=== PATIENT | female | born 1960 | race Caucasian/White ===

== ENCOUNTER 2018-05-14 11:03 | Emergency (ER) | payer OTHER ==
[~2018-05-14] VITALS: Ht 172.7 cm; Wt 72.6 kg
[2018-05-14] MEDS ORDERED: LAMICTAL100 MG PO (11:27)
[2018-05-14] MEDS ORDERED: CELEXA40 MG PO (11:27)
[2018-05-14] MEDS ORDERED: SEROQUEL 50 MG50 MG PO (11:28)
[2018-05-14] MEDS ORDERED: MOBIC15 MG PO (11:28)
[2018-05-14] MEDS ORDERED: ANTIVERT25 MG PO (12:14)
[2018-05-14] MEDS ORDERED: ZOFRAN ODT4 MG PO (12:14)
[2018-05-14] MEDS ORDERED: NORCO 5-325 TA1 EACH PO (12:15)
[2018-05-14 12:23] VITALS: BP 119/71
== END 2018-05-14 12:40 | disposition home or self-care (01) ==
LOC: ER 11:03
DX: S40.011A Contusion of right shoulder, initial encounter (principal); S80.211A Abrasion, right knee, initial encounter; S09.8XXA Other specified injuries of head, initial encounter; W01.0XXA Fall on same level from slipping, tripping and stumbling without subsequent striking against object, initial encounter; Y93.73 Activity, racquet and hand sports; Y92.312 Tennis court as the place of occurrence of the external cause; Y99.8 Other external cause status